=== PATIENT | male | born 1975 | race African-American/Black ===

== ENCOUNTER 2020-10-06 14:50 | Emergency (ER) | payer SELFPAY ==
[~2020-10-06] VITALS: Ht 182.9 cm; Wt 91.6 kg
[2020-10-06 18:17] VITALS: BP 133/69
[2020-10-06] MEDS ORDERED: LIDOCAINE 1% HCL (LOCAL ANESTH.) INJ 20ML MDV ID ONE (20:30)
[2020-10-06] MEDS ORDERED: LIDOCAINE 1% HCL (LOCAL ANESTH.) INJ 20ML MDV IJ ONE (20:30)
== END 2020-10-06 22:04 | disposition home or self-care (01) ==
LOC: ER 14:50
DX: S60.351A Superficial foreign body of right thumb, initial encounter (principal); Z88.0 Allergy status to penicillin; Z91.013 Allergy to seafood; W45.8XXA Other foreign body or object entering through skin, initial encounter; Y93.89 Activity, other specified; Y92.89 Other specified places as the place of occurrence of the external cause; Y99.8 Other external cause status
CPT/HCPCS: 10120; 73140; 73200; 99285; J2001